=== PATIENT | female | born 2000 ===

== ENCOUNTER 2024-11-24 07:35 | Emergency (ER) | payer BC ==
[2024-11-24 07:55] LABS: APPEARANCE,URINE SLIGHTLY CLOUDY (CLEAR); BILIRUBIN,URINE NEGATIVE (NEGATIVE); COLOR,URINE YELLOW (YELLOW); GLUCOSE,URINE NEGATIVE (NEGATIVE); KETONES,URINE NEGATIVE (NEGATIVE); LEUKOCYTE ESTERASE,URINE NEGATIVE (NEGATIVE); NITRITE,URINE NEGATIVE (NEGATIVE); OCCULT BLOOD,URINE TRACE-INTACT (NEGATIVE); PROTEIN,URINE NEGATIVE (NEGATIVE); UROBILINOGEN,URINE 0.2 mg/dL (0.2-1.0)
[2024-11-24] MEDS: Dicyclomine 20 MG/2 ML SDV IM ONE (08:05)
[2024-11-24] MEDS: Ondansetron 4 MG/2 ML SDV IVPUSH ONE (08:05)
[2024-11-24] MEDS: GI Cocktail Oral Solution 30 ML PO ONE (08:05)
[2024-11-24] MEDS: Lactated Ringers 1,000 ML IV SCH (08:06)
[2024-11-24 08:14] LABS: AMORPHOUS SEDIMENT,URINE FEW /HPF (NOT SEEN); BACTERIA,URINE FEW /HPF (0-FEW/HPF); EPITHELIAL CELLS,URINE MODERATE /HPF (NOT SEEN); RBC,URINE 0-5 /HPF (0-5); WBC,URINE 0-5 /HPF (0-5/HPF)
[2024-11-24] MEDS: Ondansetron 8 MG in Sodium Chloride 0.9% 50 ML IV ONE (08:25)
[2024-11-24] MEDS: Promethazine 25 MG/ML SDV IM ONE (08:57)
[2024-11-24] MEDS ORDERED: Pantoprazole 40 MG in Sodium Chloride 0.9% 100 ML IV SCH (09:00)
[2024-11-24] MEDS: Pantoprazole 40 MG Vial IVPUSH ONE (09:16)
[2024-11-24] MEDS: HYDROmorphone 0.5 MG/0.5 ML Syringe IVPUSH ONE (09:17)
[2024-11-24 09:34] LABS: BASOPHILS PERCENT AUTO 0.3 % (0.0-1.0); EOSINOPHILS PERCENT AUTO 0.5 % (1.0-3.0); HEMATOCRIT 35.9 % (37.0-47.0); HEMOGLOBIN 11.9 g/dL (12.0-16.0); LYMPHOCYTES PERCENT AUTO 13.8 % (20.5-50.1); MEAN CORPUSCULAR HEMOGLOBIN 28.2 pg (27.0-34.0); MEAN CORPUSCULAR HGB CONC 33.1 g/dL (33.0-35.0); MEAN CORPUSCULAR VOLUME 85.1 fL (80-100); MONOCYTES PERCENT AUTO 4.5 % (2-8); NEUTROPHILS PERCENT AUTO 80.9 % (42.2-75.2); PLATELET COUNT,PLT 269 10^3/uL (150-450); RED BLOOD CELL COUNT 4.22 10^6/uL (4.2-5.4); WHITE BLOOD CELL COUNT,WBC 12.3 10^3/uL (5.0-10.0)
[2024-11-24 09:50] LABS: ANION GAP 13.4 mEq/L (7-13); CALCIUM 8.5 mg/dL (8.5-10.1); CREATININE 0.92 mg/dL (0.55-1.02); POTASSIUM,K 3.4 mmol/L (3.5-5.1)
== END 2024-11-24 12:00 | disposition home or self-care (01) ==
LOC: DL.ED 07:35
DX: R10.84 Generalized abdominal pain (principal); R11.2 Nausea with vomiting, unspecified
CPT/HCPCS: 36415; 80048; 81001; 81025; 85025; 96361; 96372; 96374; 96375; 99283; 99284; A9270; J0500; J2405; J2470; J2550; J7120